=== PATIENT | male | born 1985 | race Caucasian/White ===

== ENCOUNTER 2020-08-18 01:21 | Emergency (ER) | payer MEDICAID ==
[~2020-08-18] VITALS: Ht 172.7 cm; Wt 82.0 kg
[2020-08-18] MEDS ORDERED: ONDANSETRON HCL 4MG/2ML INJ IV STA (01:44)
[2020-08-18] MEDS ORDERED: SODIUM CHLORIDE 0.9% 1,000 ML IV ONE (01:45)
[2020-08-18] MEDS ORDERED: CEFAZOLIN 1000MG PREMIX 50 ML IV ONE (01:45)
[2020-08-18] MEDS ORDERED: TETANUS, DIPHTHERIA, PERTUSSIS VAC/PF 0.5ML (>7YR OLD) IM ONE (01:45)
[2020-08-18] MEDS ORDERED: FENTANYL CITRATE/PF 50MCG/ML 2ML VIAL IV ONE (01:45)
[2020-08-18 02:10] LABS: BASOPHILS % 0.9 % (0.0-2.0); EOSINOPHILS % 0.5 % (0.0-5.0); HEMATOCRIT. 47.4 % (42.0-52.0); HEMOGLOBIN. 16.1 g/dL (14.0-18.0); LYMPHOCYTES % 18.9 % (20.0-50.0); MEAN CORPUSCULAR HEMOGLOBIN 33.1 pg (28.0-32.0); MEAN CORPUSCULAR VOLUME 97.5 fL (80.0-94.0); MEAN PLATELET VOLUME 6.9 fl (7.4-10.4); MONOCYTES % 5.9 % (2.0-8.0); NEUTROPHILS % 73.8 % (40.0-76.0); PLATELET 305 x1000/uL (130-400); RED BLOOD CELL COUNT 4.86 mill/uL (4.7-6.1); RED CELL DISTRIBUTION WIDTH 14.1 % (11.6-14.6)
[2020-08-18] MEDS ORDERED: IOHEXOL-300 100 ML BOTTLE ONE (04:59)
[2020-08-18 10:00] VITALS: BP 121/66
== END 2020-08-18 14:00 | disposition short-term general hospital (02) ==
LOC: ER 01:21
DX: S01.81XA Laceration without foreign body of other part of head, initial encounter (principal); Z20.828 Contact with and (suspected) exposure to other viral communicable diseases; V47.0XXA Car driver injured in collision with fixed or stationary object in nontraffic accident, initial encounter; Y93.89 Activity, other specified; Y92.488 Other paved roadways as the place of occurrence of the external cause
CPT/HCPCS: 36415; 70450; 70486; 71045; 71260; 72125; 74177; 80320; 85025; 90471; 90715; 93005; 96365; 96375; 99285; J0690; J2405; J7030; Q9967; G0480